=== PATIENT | female | born 1960 | race Caucasian/White ===

== ENCOUNTER 2016-09-21 09:43 | Inpatient (IN) ==
[2016-09-21] MEDS ORDERED: ASPIRIN PO ONE (10:03)
--- NOTE | 2016-09-21 10:17 | EKG Report ---
Test Performed on : 09/21/2016 10:05:13 AM Test Reason : CP Blood Pressure : / mmHG Vent. Rate : 061 BPM Atrial Rate : 061 BPM P-R Int : 148 ms QRS Dur : 082 ms QT Int : 428 ms P-R-T Axes : 066 077 240 degrees QTc Int : 430 ms Normal sinus rhythm. ST \T\ T wave abnormality, consider inferior ischemia ST \T\ T wave abnormality, consider anterolateral ischemia Abnormal ECG When compared with ECG of 21-FEB-2008 08:59, T wave inversion now evident in Inferior leads T wave inversion now evident in Lateral leads Unconfirmed Result
[2016-09-21 10:20] LABS: MANUAL DIFF NEEDED? NO
[2016-09-21 10:33] LABS: BASO% 0.6 % (0.0-0.8); EOS# 0.34 X1000 (0.0-0.7); HEMATOCRIT 41.8 % (37.0-47.0); HEMOGLOBIN 14.3 g/dL (12.0-16.0); IMM GRAN# 0.05 X1000 (0.0-0.04); IMM GRAN% 0.4 % (0.0-0.5); LYMPH% 30.5 % (20.5-51.1); MCH 30.7 PG (27-31); MCHC 34.2 g/dL (33-37); MCV 89.7 FL (81-99); MONO# 0.73 X1000 (0.11-0.59); MONO% 6.4 % (1.7-9.3); MPV 11.1 FL (7.4-10.4); NEUT% 59.1 % (42.2-75.2); PLT 208 X1000 (130-400); RBC 4.66 XMIL (4.2-5.4)
--- NOTE | 2016-09-21 10:39 | Diag Imaging Result Document ---
PROCEDURE NAME: CHEST-2 VIEWS - 09/21/2016 CHEST 2 VIEWS: Compared with 09/29/2014. FINDINGS: Heart size appears within normal limits. There is mild tortuosity of the thoracic aorta. There are apparent mild COPD changes. There is no consolidation, substantial vascular congestion, pleural effusion, or pneumothorax identified. IMPRESSION: Apparent mild COPD changes. No other evidence of acute disease.
[2016-09-21 10:50] LABS: URINE SOURCE CLEAN CATCH
[2016-09-21 10:54] LABS: BILIRUBIN URINE NEGATIVE (NEGATIVE); BLOOD URINE NEGATIVE (NEGATIVE); CLARITY SL. CLOUDY (CLEAR); COLOR YELLOW; GLUCOSE URINE NEGATIVE (NEGATIVE); LEUKOCYTES URINE NEGATIVE (NEGATIVE); NITRITE URINE NEGATIVE (NEGATIVE); PROTEIN URINE NEGATIVE (NEGATIVE); URINE MICROSCOPIC NEEDED? YES; UROBILINOGEN URINE NORMAL
[2016-09-21 10:57] LABS: AGAP 12; ALBUMIN 3.8 g/dL (3.5-5.0); ALKALINE PHOSPHATASE 100 U/L (32-104); BUN 5 mg/dL (8-22); CALCIUM 8.7 mg/dL (8.8-10.2); CHLORIDE 101 mmol/L (98-107); COSMO 273; GOT 21 U/L (10-30); GPT 29 U/L (10-36); POTASSIUM 3.6 mmol/L (3.5-5.1); SODIUM 138 mmol/L (136-145); TCO2 25 mmol/L (25-35); TOTAL PROTEIN 6.6 g/dL (6.3-8.3)
[2016-09-21 11:04] LABS: URINE EPITHELIAL CELLS >10 /HPF (<10); URINE WBC <10 /HPF (<10)
[2016-09-21] MEDS ORDERED: LEXISCAN ONE (12:00)
[2016-09-21] MEDS ORDERED: ZOFRAN IV PRN (16:38)
[2016-09-21] MEDS ORDERED: TYLENOL PO PRN (16:38)
[2016-09-21] MEDS ORDERED: SALINE LOCK IV FLUID XX ONE (16:38)
[2016-09-21] MEDS ORDERED: NITROGLYCERIN SL PRN (16:38)
[2016-09-21] MEDS ORDERED: LOVENOX SUBQ SCH (17:00)
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
[2016-09-21] MEDS: MORPHINE IV PRN (23:45)
[2016-09-22 01:11] LABS: MANUAL DIFF NEEDED? NO
[2016-09-22 01:39] LABS: HDL 32 mg/dL (45-65); LDL 119 mg/dL; TRIGLYCERIDES 104 mg/dL (35-135); VLDL 21 mg/dL
[2016-09-22 01:41] LABS: BASO% 0.4 % (0.0-0.8); EOS# 0.36 X1000 (0.0-0.7); EOS% 3.6 % (0.0-10.0); HEMATOCRIT 40.2 % (37.0-47.0); HEMOGLOBIN 13.5 g/dL (12.0-16.0); IMM GRAN# 0.03 X1000 (0.0-0.04); IMM GRAN% 0.3 % (0.0-0.5); LYMPH# 3.57 X1000 (1.2-3.4); LYMPH% 35.9 % (20.5-51.1); MCH 29.9 PG (27-31); MCHC 33.6 g/dL (33-37); MCV 89.1 FL (81-99); MONO# 0.77 X1000 (0.11-0.59); MONO% 7.7 % (1.7-9.3); NEUT% 52.1 % (42.2-75.2); PLT 203 X1000 (130-400); RBC 4.51 XMIL (4.2-5.4)
[2016-09-22] MEDS: MORPHINE IV PRN ×2 (03:06→09:40)
--- NOTE | 2016-09-22 06:15 | EKG Report ---
Test Performed on : 09/22/2016 05:34:58 AM Test Reason : chest pain Blood Pressure : / mmHG Vent. Rate : 052 BPM Atrial Rate : 052 BPM P-R Int : 148 ms QRS Dur : 086 ms QT Int : 478 ms P-R-T Axes : 059 060 -78 degrees QTc Int : [address] \T\ T wave abnormality, consider inferior ischemia ST \T\ T wave abnormality, consider anterolateral ischemia Abnormal ECG When compared with ECG of 21-SEP-2016 10:05, (Unconfirmed) No significant change was found Confirmed by Martín Gallo MD ([id number]) on 09/22/2016 8:17:02 AM
[2016-09-22] MEDS ORDERED: PRILOSEC PO SCH (07:00)
[2016-09-22 07:25] LABS: AGAP 9; BUN 8 mg/dL (8-22); CALCIUM 8.9 mg/dL (8.8-10.2); CHLORIDE 106 mmol/L (98-107); COSMO 275; POTASSIUM 3.9 mmol/L (3.5-5.1); SODIUM 139 mmol/L (136-145); TCO2 25 mmol/L (25-35)
[2016-09-22] MEDS ORDERED: ASPIRIN PO SCH (09:00)
--- NOTE | 2016-09-22 10:52 | GRADED EXERCISE REPORT ---
DATE: 09/22/2016 INDICATION: Chest pain. ORDERING PHYSICIAN: Morro Dawson MD, I believe. FINDINGS: Briefly, baseline EKG showed ST depression, T-wave inversion of II, III, aVF, although mild, and then V3 through V6. The patient underwent Lexiscan infusion per protocol 0.4 mg. Immediately upon injection, she developed back and left-sided shoulder pain. ST changes were more pronounced, but were not greater than 1 mm, but were more pronounced in II, III, and aVF and V4 through V6. She had a lot of breathing variation. We had to change leads during the test, but did not meet the greater than 1 mm change, so it was felt to be electrically negative, however, clinically positive, although, of note, again ST depressions were more pronounced in inferior and lateral leads. The myocardial profusion is reported separately. cc: Walter Merrill MD
--- NOTE | 2016-09-22 13:05 | ECHO REPORT ---
ORDER DATE: 09/22/2016 INDICATION: Chest pain. FINDINGS: 1. The right atrium is normal in size at 2.8 cm. 2. Trace tricuspid regurgitation. RV systolic pressure of 33. 3. Normal RV size and systolic function. 4. No significant pulmonic insufficiency. 5. Mild left atrial enlargement at 4.2 cm. 6. No mitral prolapse. Trace mitral regurgitation. 7. Normal LV size, end-diastolic dimension of 5.3. Normal wall thicknesses with posterior and interventricular septal wall thickness of 0.8 cm each. Normal LV systolic function. Calculated EF of 65% with normal wall motion. 8. Aortic valve opens well. No evidence of stenosis or insufficiency. 9. Aorta appears normal in visualized segments. 10. No pericardial effusion seen. cc: MD Soledad Avitia CRNP
--- NOTE | 2016-09-22 14:07 | Diag Imaging Result Document ---
PROCEDURE NAME: MYOCARDIAL PERF SCAN, STR/REST - 09/22/2016 INDICATION: Chest pain. PROCEDURES PERFORMED: 1. One-day stress/rest myocardial perfusion imaging. 2. Lexiscan stress (results dictated separately). PROCEDURE DETAIL: Ms. Chappell was brought to the [facility] and had a resting study with injection of 15.1 mCi of technetium-99 sestamibi with usual imaging protocol utilized. She subsequently was brought back and had a Lexiscan stress, and at peak stress was injected with 42 mCi of technetium-99 sestamibi with usual imaging protocol utilized. FINDINGS: 1. No evidence of abnormal extracardiac uptake. 2. TID ratio is 1.14. There does not appear to be any significant transient ischemic dilatation. 3. Perfusion imaging shows a small size mild intensity defect located at the apex. This defect appears to be mixed. The portions in the more inferior apical segments seem more fixed. There is some mild reversibility in the more anterior apical portions of this defect suggesting the possibility of a very limited small amount of ischemia in this territory versus some shifting soft tissue attenuation. Overall, I believe if it does represent ischemia, it is an extremely small defect and would denote low risk and possible medical therapy if the clinical situation correlates. 4. There was a normal ejection fraction of 74%. The end-diastolic volume is 108. End-systolic volume is 28. Normal wall motion. cc: MD Soledad Avitia CRNP
[2016-09-22 15:23] VITALS: BP 144/74
--- NOTE | 2016-09-22 20:12 | PROVIDER DOCUMENTATION ---
This chart was entered by Francisco Ott Scribe, acting as scribe for Krystin Duncan CRNP. HPI-Chest Pain - General Chief Complaint: Chest Pain Stated Complaint: CHEST PAIN Time Seen by Provider: 09/21/16 10:03 Source: patient Allergies/Adverse Reactions: Patient Allergies Allergy/AdvReac Type Severity Reaction Status Date / Time No Known Allergies Allergy Verified 09/29/14 13:15 Home Medications: Home Medication List Medication Instructions Recorded Confirmed Last Taken Type Escitalopram [Lexapro] 20 mg PO HS 09/29/14 09/21/16 09/20/16 20:00 History Furosemide [Lasix] 20 mg PO BID #60 tablet 09/29/14 09/21/16 09/20/16 20:00 Rx Gabapentin [Gralise] 600 mg PO HS 09/29/14 09/21/16 09/20/16 20:00 History Methadone 10 mg PO TID 09/29/14 09/21/16 09/21/16 05:00 History Potassium Chloride [K-Tab ER] 20 meq PO HS 09/21/16 09/21/16 09/20/16 21:00 History - History of Present Illness-CP Nature of Presenting Problem: Hx of chf,cad,htn, and TX at age 30 sent to er by PMD for cc of chest pain x 2 weeks with nausea,sob,and lethargy. Denies sob at this time. reports cp is substernal nonradiating. Reports takes aspirin every night. No recent stress test or heart cath. Pt is a smoker. PMD faxed an EKG over to ER that reads NSR; septal infarct age undetermined,ST and T wave abnormality consider inferior ischemia,ST and T wave abnormality consider anterolateral ischemia. Location: reports: substernal Chest Pain Radiation: reports: no radiation Quality of Pain: reports: aching Severity in ED: moderate Onset/Duration: other (2weeks) Timing: still present, constant Aspirin Treatment Today: 325 mg x 1, provided by ED Similar Symptoms Previously?: Yes Recently Seen Here or By Another Healthcare Provider: Yes Review of Systems - Adult - REVIEW OF SYSTEMS - ADULT Constitutional: reports: fatique. denies: chills, fever, night sweats Eyes: reports: no symptoms reported Ears, Nose, Mouth & Throat: reports: no symptoms reported Cardiovascular: reports: chest pain. denies: irregular heart rate, orthopnea, syncope Respiratory: reports: shortness of breath. denies: cough, dyspnea on exertion, wheezing Gastrointestinal: reports: nausea. denies: diarrhea, vomiting Genitourinary: reports: no symptoms reported Musculoskeletal: reports: no symptoms reported Integumentary: reports: no symptoms reported Neurological: reports: no symptoms reported Psychiatric: reports: no symptoms reported Endocrine: reports: no symptoms reported Hematologic/Lymphatic: reports: no symptoms reported Allergic/Immunologic: reports: no symptoms reported All Other Systems: Reviewed and Negative Past History - Adult - PAST MEDICAL HISTORY-ADULT Review of Records: reports: Nursing Assessment Review, Medications Reviewed Major Childhood Illnesses: reports: denies history Cardiovascular: reports: CAD, CHF, HTN, TX Respiratory: reports: COPD Obstetrical/Gynecological: reports: other (cervical cancer) - PRIOR SURGERIES/PROCEDURES Surgical/Procedure History: reports: hysterectomy, other (left lung surgery) - PRIOR HOSPITALIZATIONS Prior Hospitalizations: reports: for similar symptoms - IMMUNIZATION STATUS Childhood Immunizations: See Nurse Assessment Flu Vaccine: See Nurse Assessment - FAMILY HISTORY Family History: reviewed, not pertinent - SOCIAL HISTORY Smoking: cigarettes, less than 1 pack/day Provider spent 3-5 mins advising pt. on dangers of tobacco.: Discussed manners to quit use, and f/u contacts for add'l counseling. Substance Use: none/never Physical Exam-General - PHYSICAL EXAM-ADULT Initial Vital Signs Reviewed: Yes - CONSTITUTIONAL General Appearance: appears well, alert, no apparent distress - EYES Eyes: PERRL/EOMI, pink conjunctivae - HEAD, EARS, NOSE, MOUTH & THROAT HENMT: normocephalic/atraumatic, moist mucous membranes, normal ENT inspection, TMs normal, pharynx normal - NECK Neck: full range of motion, supple - RESPIRATORY Respiratory: lungs clear, normal breath sounds - CARDIOVASCULAR Cardiovascular: normal peripheral pulses, regular rate, rhythm - GASTROINTESTINAL (ABDOMEN) Abdominal Exam: non tender, soft - MUSCULOSKELETAL Extremity: normal range of motion, normal capillary refill - SKIN Integumentary: normal color, normal turgor, warm/dry Progress - PLAN OF CARE/RESULTS Progress/Plan/Lab Results: Orders Category Date Time Status Admit - [facility] Routine AdmDCTranf 09/21/16 13:56 Ordered Activity - Up Ad Sherry ORDERED Care 09/21/16 13:57 Inactive Call Admitting on Arrival AT ADMISSION Care 09/21/16 13:57 Inactive Cardiac Monitoring DIRECTED Care 09/21/16 10:03 Completed Saline Loc DIRECTED Care 09/21/16 13:57 Inactive Vital Signs Order ROUTINE Care 09/21/16 13:57 Inactive CHEST-2 VIEWS [RAD] Stat Exams 09/21/16 10:03 Completed CBC WITH DIFF [HEME] Stat Lab 09/21/16 10:15 Completed CK PROFILE [SP CHEM] Stat Lab 09/21/16 10:15 Completed CK PROFILE [SP CHEM] Stat Lab 09/21/16 12:43 Completed COMPREHENSIVE METABOLIC PANEL [CHEM] Stat Lab 09/21/16 10:15 Com[address] D-DIMER PL [COAG] Stat Lab 09/21/16 10:15 Completed PRO B-NATRIURETIC PEPTIDE Stat Lab 09/21/16 10:15 Completed TROPONIN T Stat Lab 09/21/16 10:15 Completed TROPONIN T Stat Lab 09/21/16 12:[address] [URINALYSIS] Stat Lab 09/21/16 10:46 Completed URINE MICROSCOPIC [URINALYSIS] Stat Lab 09/21/16 10:46 Completed Aspirin Med 09/21/16 10:03 Discontinued 325 mg PO NOW ONE EKG [EKG] Stat Ther 09/21/16 10:03 Draft Transfer/Admit Order [TRANSFER] Routine Transfer 09/21/16 13:58 Completed 1130: Discussed patient care and plans for admission with Dr. Harris. 1150: Discussed plans for admission with patient. Result Diagrams: 09/22/16 01:00 09/22/16 06:10 - EKG 1 Time of EKG reading by physician:: 10:05 EKG Read and Signed by:: Feliciano Harris Jr EKG Interpretation (*Must complete 3 of following elements*): Abnormal (st and twave abnormality consider inferior ischemia; ST and twave abnormality consider anterolateral ischemia.) Rate: 61 Rhythm: nsr [place]: normal - XRAY 1 XRAY: Bilateral XRAY Study: Chest Impression: Abnormal XRAY Interpretation: mild copd changes - CONSULTS/PCP/HOSPITALIST Notification #1 *Consult/PCP/Hospitalist*: quansah Time Discussed: 11:50 Reason/Comments: Hospital admission Consult Disposition: Will see in ED Departure - Departure Time of Disposition Decision: 11:58 DIAGNOSIS: Chest pain Qualifiers: Chest pain type: unspecified Qualified Code(s): R07.9 - Chest pain, unspecified Disposition: ADMITTED INPATIENT 09 Certified Medical Emergency: Emergent Condition: Stable Attestation - Physician/ MARYAN Attestation Patient care was provided by Advanced Practice Provider:: Yes Advanced Practice Provider:: Krystin Duncan Advanced Practice Provider documentation review:: The Mid-level provider documentation, treatment plan and medical decision making was reviewed by the physician who agrees with all treatment and medical decision making by the MLP. This chart was documented by the indicated scribe, (Francisco Ott Scribe) and accurately reflects the services I performed and decisions made by Perla kwon Jacqueline Kay, CRNP, as attested by the provider's signature.
--- NOTE | 2016-10-17 04:41 | DISCHARGE SUMMARY ---
ADMISSION DATE: 09/21/2016 DISCHARGE DATE: 09/22/2016 SUMMARY: This patient was hospitalized on 09/21/2016 under the diagnosis of chest pain, hypertension, fatigue, and tobacco abuse. The plan was to put this patient in telemetry, and also perform a myocardial perfusion scan. Lab work was done on 09/22/2016, that showed WBC 9.9, hemoglobin 13.5, hematocrit 40.2, platelet 203,000. Sodium 139, potassium 3.9, chloride 106, bicarbonate 25, BUN 8, creatinine 0.6, glucose 75, calcium 8.9. Troponins negative x5. A myocardial perfusion scan was performed, and showed no evidence of abnormal extracardiac uptake. TID ratio is 1.14. There does not appear to be to be any significant transient ischemic dilation. Perfusion imaging showed a small size mild intensity defect located at the apex. The jewelry store manager believed that if this represents ischemia, it is extremely small, and it would denote low risk and possible medical therapy if the clinical situation correlates. Normal ejection fraction, around 74%, and end-diastolic volume is 108, end systolic volume is 28, with normal wall motion. The patient was evaluated by me, and we were waiting for the results of the stress test, but this patient left the hospital without being discharged. Vital signs were stable. cc: Daniel George MD
== END 2016-09-22 16:45 | disposition left against medical advice (07) ==
LOC: P.ED 09:43 → SUATTDRO 14:47 → P.MEDSURG 14:47
PROVIDERS: ATTEND Internal Medicine

== ENCOUNTER 2019-07-10 05:08 | Day surgery (SDC) ==
--- NOTE | 2019-07-07 09:54 | EKG Report ---
Test Performed on : 07/07/2019 09:50:09 AM Test Reason : pat Blood Pressure : / mmHG Vent. Rate : 063 BPM Atrial Rate : 063 BPM P-R Int : 140 ms QRS Dur : 082 ms QT Int : 386 ms P-R-T Axes : 062 068 255 degrees QTc Int : 395 ms Normal sinus rhythm. Low voltage QRS Septal infarct , age undetermined T wave abnormality, consider inferior ischemia T wave abnormality, consider anterolateral ischemia Abnormal ECG When compared with ECG of 22-SEP-2016 05:34, QT has shortened Confirmed by Carlos BRITO, Allan Hurtado ([id number]) on 07/07/2019 6:02:46 PM
[2019-07-07 10:15] LABS: HEMATOCRIT 46.8 % (37.0-47.0); HEMOGLOBIN 15.6 g/dL (12.0-16.0); MCH 30.2 PG (27-31); MCHC 33.3 g/dL (33-37); MCV 90.5 FL (81-99); MPV 11.2 FL (7.4-10.4); RBC 5.17 XMIL (4.2-5.4); RDW 13.8 % (11.5-14.5); WBC 13.98 X1000 (4.8-10.8)
[2019-07-07 10:42] LABS: AGAP 12; BUN 8 mg/dL (8-22); CALCIUM 9.4 mg/dL (8.8-10.2); CHLORIDE 105 mmol/L (98-107); COSMO 277; CREATININE 0.7 mg/dL (0.5-0.9); ESTIMATED GFR > 60; GLUCOSE 83 mg/dL (70-104); POTASSIUM 4.5 mmol/L (3.5-5.1); SODIUM 140 mmol/L (136-145); TCO2 23 mmol/L (25-35)
[2019-07-10] MEDS ORDERED: LR 1,000 ML ONE ×2 (05:37→06:50)
[2019-07-10] MEDS ORDERED: KEFZOL 1 GM/D5W 1 GM/50 ML IVPB ONE (05:37)
[2019-07-10] MEDS ORDERED: DIPRIVAN 1% ONE (06:28)
[2019-07-10] MEDS ORDERED: STERILE WATER INJ. ONE (06:28)
[2019-07-10] MEDS ORDERED: NORCURON ONE (06:28)
[2019-07-10] MEDS ORDERED: ROBINUL ONE ×3 (06:28→08:27)
[2019-07-10] MEDS ORDERED: QUELICIN (DOSE) ONE (06:28)
[2019-07-10] MEDS ORDERED: XYLOCAINE-MPF 2% ONE (06:28)
[2019-07-10] MEDS ORDERED: FENTANYL ONE ×2 (06:28→08:44)
[2019-07-10] MEDS ORDERED: REGLAN ONE (06:45)
[2019-07-10] MEDS ORDERED: PEPCID ONE (06:45)
[2019-07-10] MEDS ORDERED: SENSORCAINE-MPF 0.5%/EPI 1:200,000 ONE (06:50)
[2019-07-10] MEDS ORDERED: VENTOLIN HFA ONE (06:54)
[2019-07-10] MEDS ORDERED: OFIRMEV 1000 MG/ISOTONIC SOLN 1,000 MG/100 ML BOTTLE ONE (07:56)
[2019-07-10] MEDS ORDERED: DECADRON ONE (07:56)
[2019-07-10] MEDS ORDERED: ZOFRAN ONE (07:56)
[2019-07-10 08:01] LABS: URINE SOURCE CATH
[2019-07-10 08:21] LABS: BILIRUBIN URINE NEGATIVE (NEGATIVE); BLOOD URINE NEGATIVE (NEGATIVE); COLOR YELLOW; GLUCOSE URINE NEGATIVE (NEGATIVE); KETONE URINE NEGATIVE (NEGATIVE); LEUKOCYTES URINE NEGATIVE (NEGATIVE); NITRITE URINE NEGATIVE (NEGATIVE); PROTEIN URINE NEGATIVE (NEGATIVE); SP GRAVITY URINE 1.016; TURBIDITY URINE CLEAR (CLEAR); UROBILINOGEN URINE NORMAL (NORMAL)
[2019-07-10 08:23] LABS: UR EPITHELIAL CELLS <10 /HPF (<10); URINE BACTERIA NEGATIVE /HPF; URINE RBC <10 /HPF (<10); URINE WBC <10 /HPF (<10)
[2019-07-10] MEDS ORDERED: NEOSTIGMINE ONE (08:27)
[2019-07-10] MEDS ORDERED: NS 1,000 ML ONE (09:11)
[2019-07-10] MEDS: DILAUDID ONE ×4 (09:14→09:44)
--- NOTE | 2019-07-10 09:39 | OPERATIVE NOTE ---
PROCEDURE DATE: 07/10/2019 PROCEDURE PERFORMED: Laparoscopic Trang fundoplication. SURGEON: Kenny Garnica MD. WHEEL LOADER OPERATOR: Dr. Calle, Casper Lloyd RN PREOPERATIVE DIAGNOSIS: Laryngopharyngeal reflux. POSTOPERATIVE DIAGNOSIS: Laryngopharyngeal reflux. INDICATION: This lady has chronic coarseness and coughs. She has reflux noted on the barium study. No hiatal hernia was seen on barium swallow. DESCRIPTION OF PROCEDURE: Satisfactory general endotracheal anesthesia was achieved. The patient was placed in Terence stirrups with the bed reversed so that we could use a head piece as a chair. The arms were extended. The abdomen was prepped and draped in a sterile fashion. We introduced a 11 trocar in the left upper quadrant, Optiview technique and insufflated through this trocar. Under direct visualization we then introduced an 11 trocar above the umbilicus 15 cm below the xiphoid. We then introduced a 5 trocar in the right upper quadrant. Switched to a 5 camera and then we were able to take adhesions down with the LigaSure so that we could actually have open space to complete the laparoscopic procedure. These adhesions were from previous abdominal surgery. We took care to avoid any bowel. After the adhesions were taken down we then placed the patient in reverse Trendelenburg. We removed the 5 trocar in the right upper quadrant and introduced the medium Kadie retractor and placed it underneath the liver to lift the liver up. We then introduced the 11 trocar in the midepigastrium, appropriately positioned to miss the left lobe of the liver and then another 11 trocar in the left mid abdomen. We then used the [place] to pull the stomach down. I used the laparoscopic LigaSure then to divide the gastrohepatic ligament. We exposed the right rony and then divided the tissue between the esophagus, stomach and right rony until we went caudad until we reached the junction of the left rony to the right rony. We then advanced our dissection up toward the anterior aspect of the esophagus. We took care to avoid injury to the anterior vagus. We entered the space between the right rony and the esophagus and again there was no hiatal hernia noted but we did develop the space there so that we could make a wrap. We then lifted up the greater omentum and used the LigaSure to divide the short gastrics from the greater curve all the way up to the left rony we divided the tissue between the stomach esophagus in the left rony and went caudad until again we found the junction of the right rony to the left rony. We then asked the nurse manager procurement to advance the small Cook tube into the stomach which was already in the esophagus placed preoperatively by me along with the large 53 bougie which was in the mid esophagus so the Cook catheter was noted in the stomach. We then asked her to advance the large bougies which she did easily into the stomach and this gauge the size of our esophagus to allow appropriate stitches within the crura. I then had him retract the large bougie back and placed an O'Cote retractor and we placed a silk stitch using laparoscopic endo-stitch at the appropriate position to approximate the crura. I then added 0 Surgidac stitch well and this adequately reapproximated the crura. We had an adequate window behind the esophagus. We had taken care to avoid any injury to the posterior vagus. We used a ratcheted laparoscopic grasper that we could torque and we passed it around the esophagus and we safely did that and visualized the jaws on the other side of the esophagus and here we grasped the greater curve of the stomach and then delivered it around the esophagus through the posterior window. We then positioned the wrap appropriately where it was not twisted. We then had them readvance the bougie so that we could gauge the size of the wrap and the tightness of the wrapped. We then used a 0 silk endo-stitch away from the anterior stomach to esophagus beside the vagus missing the anterior vagus safely and then through the wrapped stomach and we secured that stitch. We then used 2 Surgidac stitch. It went from anterior stomach to wrapped stomach 1.5 cm caudad with the first stitch and then placed an additional Surgidac stitch between those 2. We then had them remove the big bougie and a small bougie. The wrap was adequately loose and not too tight. We then added an additional 0 silk endo-stitch from the wrapped stomach to the right rony and from the anterior stomach to really the anterior diaphragm. This adequately secured the wrapped at the diaphragmatic hiatus. Again hemostasis was satisfactory. We were satisfied the wrap was appropriately sized and not too tight or not too loose. Hemostasis was satisfactory. We then loosened the retractor under the left lobe of the liver and allowed it to fall to its normal position. There was no evidence of bleeding. We flattened the patient. We then used a Otoniel Thomasen closures at each trocar site with a 2-0 Polysorb thereby appropriately closing the abdominal wall at each trocar site. The skin was then closed at each incision with 4-0 Polysorb subcuticular stitches. Sterile OpSites were applied. She tolerated it well and was sent to the recovery room in satisfactory condition. cc: MD John Tariq MD
[2019-07-10] MEDS: DILAUDID IV PRN ×3 (12:35→20:38)
[2019-07-10] MEDS: ZOFRAN IV PRN ×2 (17:02→20:38)
[2019-07-10] MEDS: NS 1,000 ML IV SCH (20:43)
[2019-07-11] MEDS: DILAUDID IV PRN ×3 (01:04→08:08)
[2019-07-11] MEDS: ZOFRAN IV PRN (01:04)
[2019-07-11] MEDS: NS 1,000 ML IV SCH (01:49)
[2019-07-11] MEDS ORDERED: NORCO-10 PO PRN (06:55)
[2019-07-11 11:25] VITALS: BP 118/59
--- NOTE | 2019-07-11 14:41 | GENERAL SURGERY PROGRESS NOTE ---
DATE: 07/11/2019 SUBJECTIVE: Ms. Chappell is doing generally well. She took liquids this morning without difficulty, swallowed without any problem whatsoever. PLAN: We will let her go home. We discussed her activity and dietary recommendations. She will return to see me in the office in a week. She understands. cc: Kenny Garnica MD
== END 2019-07-11 13:06 | disposition home or self-care (01) ==
LOC: OR 05:08 → 4N 05:08 → OR 07-11 01:06
PROVIDERS: ATTEND Surgery